=== PATIENT | male | born 1960 | race Two or more races ===

== ENCOUNTER 2022-01-14 10:13 | Inpatient (IN) | payer OTHER ==
[~2022-01-14] VITALS: Ht 152.4 cm; Wt 88.0 kg
--- NOTE | 2022-01-14 10:54 | NUR ---
SE RECIBE PTE ALERTA Y ORIENTADO X3 CUAL REFIERE QTUVO TRAUMA EN DEDO ANULAR MANO IZQ HACE UN MES. DESDO SE OBSERVA CON LEVE EDEMA Y CON NECROSIS. SE YOVANI S/V Y SE UBICA EN FT.
[2022-01-14] MEDS ORDERED: CIPRO250 MG PO (10:56)
[2022-01-14] MEDS ORDERED: GRALISE600 MG PO (10:57)
[2022-01-14] MEDS ORDERED: PAXIL30 MG PO (10:58)
[2022-01-14] MEDS ORDERED: MIRTAZAPINE30 M1 PO (10:59)
[2022-01-14] MEDS ORDERED: METAXALONE400 MG PO (11:00)
[2022-01-14] MEDS ORDERED: ATORVASTATIN CA10 MG PO (11:00)
[2022-01-14] MEDS ORDERED: TAMS0.4C PO (11:00)
[2022-01-14] MEDS ORDERED: PLAVIX75 MG (11:01)
[2022-01-14] MEDS ORDERED: HUMULIN N100 UNIT/2 (11:01)
[2022-01-14] MEDS ORDERED: LANTUS SOL100 UNIT/1 SQ (11:01)
--- NOTE | 2022-01-14 12:47 | NUR ---
PACIENTE EVALUADO POR DR THEODORE QUIEN [place] MED[facility], RN TUESTA LE ORIENTA SOBRE EL MISMO Y REFIERE ENTENDER. LE COLECTA MUESTRAS DE LABORATOIRO BAJO MEDIAS ASEPTICAS.
--- NOTE | 2022-01-14 16:27 | NUR ---
SE CANALIZA PTE BAJO MEDIDAS ASEPTICAS,SE ADMINISTRA MEDICAMENTO DENZEL ORDEN MEDICA.
== END 2022-01-22 22:48 | disposition home or self-care (01) | DRG 255 ==
LOC: ER 10:13 → MEDI 19:20 → MEDJ 19:20 → MEDI 01-15 16:30
PROVIDERS: Orthopaedic Surgery Hand Surgery; ADMIT Internal Medicine; ATTEND Internal Medicine
PROC: CW1N1ZZ Planar Nuclear Medicine Imaging of Whole Body using Technetium 99m (Tc-99m) (ICD-10-PCS; 2022-01-15)
PROC: 0X6T0Z2 Detachment at Left Ring Finger, Mid, Open Approach (ICD-10-PCS; principal; 2022-01-20 07:00)
DX: E11.52 Type 2 diabetes mellitus with diabetic peripheral angiopathy with gangrene (principal); N18.6 End stage renal disease; I96 Gangrene, not elsewhere classified; M86.142 Other acute osteomyelitis, left hand; L97.821 Non-pressure chronic ulcer of other part of left lower leg limited to breakdown of skin; I12.0 Hypertensive chronic kidney disease with stage 5 chronic kidney disease or end stage renal disease; E11.22 Type 2 diabetes mellitus with diabetic chronic kidney disease; E11.65 Type 2 diabetes mellitus with hyperglycemia; E11.622 Type 2 diabetes mellitus with other skin ulcer; Z99.2 Dependence on renal dialysis; Z79.4 Long term (current) use of insulin; Z79.84 Long term (current) use of oral hypoglycemic drugs

== ENCOUNTER 2022-02-01 12:21 | Inpatient (IN) | payer OTHER ==
[~2022-02-01] VITALS: Ht 167.6 cm; Wt 87.5 kg
[~2022-02-01 12:21] MED LIST: ATORVASTATIN CA10 MG PO; CIPRO250 MG PO; GRALISE600 MG PO; HUMULIN N100 UNIT/2; LANTUS SOL100 UNIT/1 SQ; METAXALONE400 MG PO; MIRTAZAPINE30 M1 PO; PAXIL30 MG PO; PLAVIX75 MG; TAMS0.4C PO
--- NOTE | 2022-02-01 12:50 | NUR ---
SE RECIBE PT EMASCULINO DE 61 ANOS ALERTA Y ORIENTADO X3 QUIEN REFIERE SENU SIDO OPERADO POR DR OLEGARIO ERWIN EN EL DEDO ANULAR DE MANO IZQ. PTE REFIERE DOLOR Y DECOLORACION EN EL AREA AFECTADA. AL MOENTO SE OBSERBA AREA CIRCUNDANTE OSCURA. SE MONITOREAN S/V Y SE UBICA EN MARK ANTHONY 7.
--- NOTE | 2022-02-01 14:43 | NUR ---
PACIENTE LLEGA A GINGER DE EMERGENCIA Y REFIERE DOLOR EN MANO IZQUIERDA. SE OBSERVA NECROSIS EN DEDO INDICE MAX Y ENROJECIMIENTO EN MALONE DE LA MANO IZQUIERDA. SE ADMINISTRA MEDICAMENTO Y SE ORIENTA SOBRE EL MISMO. SE YOVANI MUESTRAS DE NEO.
== END 2022-02-12 20:49 | disposition home or self-care (01) | DRG 299 ==
LOC: ER 12:21 → MEDJ 02-02 05:41
PROVIDERS: ADMIT Internal Medicine; ATTEND Internal Medicine
PROC: 5A1D70Z Performance of Urinary Filtration, Intermittent, Less than 6 Hours Per Day (ICD-10-PCS; principal; 2022-02-03)
PROC: 5A1D70Z Performance of Urinary Filtration, Intermittent, Less than 6 Hours Per Day (ICD-10-PCS; 2022-02-05)
PROC: 8E0ZXY6 Isolation (ICD-10-PCS; 2022-02-05)
PROC: 5A1D70Z Performance of Urinary Filtration, Intermittent, Less than 6 Hours Per Day (ICD-10-PCS; 2022-02-08)
PROC: 5A1D70Z Performance of Urinary Filtration, Intermittent, Less than 6 Hours Per Day (ICD-10-PCS; 2022-02-10)
PROC: 5A1D70Z Performance of Urinary Filtration, Intermittent, Less than 6 Hours Per Day (ICD-10-PCS; 2022-02-12)
DX: E11.52 Type 2 diabetes mellitus with diabetic peripheral angiopathy with gangrene (principal); N18.6 End stage renal disease; I12.0 Hypertensive chronic kidney disease with stage 5 chronic kidney disease or end stage renal disease; I96 Gangrene, not elsewhere classified; L97.828 Non-pressure chronic ulcer of other part of left lower leg with other specified severity; L03.012 Cellulitis of left finger; E11.622 Type 2 diabetes mellitus with other skin ulcer; E11.65 Type 2 diabetes mellitus with hyperglycemia; E11.22 Type 2 diabetes mellitus with diabetic chronic kidney disease; Z99.2 Dependence on renal dialysis; Z79.4 Long term (current) use of insulin; Z89.022 Acquired absence of left finger(s); Z89.511 Acquired absence of right leg below knee; D72.829 Elevated white blood cell count, unspecified

== ENCOUNTER 2022-02-17 22:06 | Inpatient (IN) | payer OTHER ==
[~2022-02-17] VITALS: Ht 152.4 cm; Wt 85.3 kg
[2022-02-17] MEDS ORDERED: LANTUS SOL100 UNIT/1 SQ (22:21)
--- NOTE | 2022-02-17 22:22 | NUR ---
PACIENTE ALERTA Y ORIENTADO X3 EN AMBULANCIA DE TRANSLADO [facility]. PACIENTE REFIERE QUE LA SEMANA PASADA ESTUVO ADMITIDO POR AMPUTACION EN DEDO DE LA MANO IZQUIERDA PACIENTE REFIERE QUE PRESENTA INFECCION EN AREA DE OPERACION.
--- NOTE | 2022-02-17 22:57 | NUR ---
PTE ALERTA Y ORIENTADO X3, SE RECIBE PTE CANALIZADO DE [facility] EN BRAZO DERECHO ANGIO #20 AREA IRMA DE EDEMA Y DE ENROJECIMIENTO. REFIERE QUE SE PUEDE UTILIZAR H/L. SE LE YOVANI MUESTRAS DE LAB. BAJO MEDIDAS ASEPTICAS E ESTERIL. SE LE ADMINISTRAN MEDICAMENTO DENZEL ORDEN MEDICA Y SE EDUCA A PTE SOBRE TRATAMIENTO MEDICO.
== END 2022-04-08 13:02 | disposition expired | DRG 3 ==
LOC: ER 22:06 → SURH 23:13 → SEC-K 23:13 → ICU 23:13 → SURG 02-18 19:11 → SEC-K 02-18 19:58 → SURH 02-19 12:45 → ICU 02-28 18:37
PROVIDERS: Surgery; ADMIT Internal Medicine; ATTEND Internal Medicine
PROC: 5A1D70Z Performance of Urinary Filtration, Intermittent, Less than 6 Hours Per Day (ICD-10-PCS; 2022-02-19)
PROC: 0X6T0Z0 Detachment at Left Ring Finger, Complete, Open Approach (ICD-10-PCS; 2022-02-20)
PROC: 30243N1 Transfusion of Nonautologous Red Blood Cells into Central Vein, Percutaneous Approach (ICD-10-PCS; 2022-02-22)
PROC: 5A1D70Z Performance of Urinary Filtration, Intermittent, Less than 6 Hours Per Day (ICD-10-PCS; 2022-02-22)
PROC: 5A1D70Z Performance of Urinary Filtration, Intermittent, Less than 6 Hours Per Day (ICD-10-PCS; 2022-02-24)
PROC: 5A1D70Z Performance of Urinary Filtration, Intermittent, Less than 6 Hours Per Day (ICD-10-PCS; 2022-02-26)
PROC: 4A12X45 Monitoring of Cardiac Electrical Activity, Ambulatory, External Approach (ICD-10-PCS; 2022-02-27)
PROC: 5A1955Z Respiratory Ventilation, Greater than 96 Consecutive Hours (ICD-10-PCS; 2022-02-28)
PROC: 0BH18EZ Insertion of Endotracheal Airway into Trachea, Via Natural or Artificial Opening Endoscopic (ICD-10-PCS; 2022-02-28)
PROC: 5A09357 Assistance with Respiratory Ventilation, Less than 24 Consecutive Hours, Continuous Positive Airway Pressure (ICD-10-PCS; 2022-02-28)
PROC: 5A09457 Assistance with Respiratory Ventilation, 24-96 Consecutive Hours, Continuous Positive Airway Pressure (ICD-10-PCS; 2022-02-28)
PROC: 5A0945A Assistance with Respiratory Ventilation, 24-96 Consecutive Hours, High Flow/Velocity Cannula (ICD-10-PCS; 2022-02-28)
PROC: 5A1D70Z Performance of Urinary Filtration, Intermittent, Less than 6 Hours Per Day (ICD-10-PCS; 2022-03-01)
PROC: 5A1D70Z Performance of Urinary Filtration, Intermittent, Less than 6 Hours Per Day (ICD-10-PCS; 2022-03-03)
PROC: B34JZZZ Ultrasonography of Left Upper Extremity Arteries (ICD-10-PCS; 2022-03-04)
PROC: B24BYZZ Ultrasonography of Heart with Aorta using Other Contrast (ICD-10-PCS; 2022-03-05)
PROC: 5A1D70Z Performance of Urinary Filtration, Intermittent, Less than 6 Hours Per Day (ICD-10-PCS; 2022-03-05)
PROC: 5A1D70Z Performance of Urinary Filtration, Intermittent, Less than 6 Hours Per Day (ICD-10-PCS; 2022-03-08)
PROC: 0JBK0ZZ Excision of Left Hand Subcutaneous Tissue and Fascia, Open Approach (ICD-10-PCS; 2022-03-09)
PROC: 5A1D70Z Performance of Urinary Filtration, Intermittent, Less than 6 Hours Per Day (ICD-10-PCS; 2022-03-10)
PROC: 5A1D70Z Performance of Urinary Filtration, Intermittent, Less than 6 Hours Per Day (ICD-10-PCS; 2022-03-12)
PROC: 5A1D70Z Performance of Urinary Filtration, Intermittent, Less than 6 Hours Per Day (ICD-10-PCS; 2022-03-15)
PROC: 5A1D70Z Performance of Urinary Filtration, Intermittent, Less than 6 Hours Per Day (ICD-10-PCS; 2022-03-17)
PROC: 5A1D70Z Performance of Urinary Filtration, Intermittent, Less than 6 Hours Per Day (ICD-10-PCS; 2022-03-19)
PROC: 0G8J0ZZ Division of Thyroid Gland Isthmus, Open Approach (ICD-10-PCS; 2022-03-20)
PROC: 0B110F4 Bypass Trachea to Cutaneous with Tracheostomy Device, Open Approach (ICD-10-PCS; principal; 2022-03-20 09:00)
PROC: 5A1D70Z Performance of Urinary Filtration, Intermittent, Less than 6 Hours Per Day (ICD-10-PCS; 2022-03-21)
PROC: 5A1D70Z Performance of Urinary Filtration, Intermittent, Less than 6 Hours Per Day (ICD-10-PCS; 2022-03-23)
PROC: 5A1D70Z Performance of Urinary Filtration, Intermittent, Less than 6 Hours Per Day (ICD-10-PCS; 2022-03-25)
PROC: 5A1D70Z Performance of Urinary Filtration, Intermittent, Less than 6 Hours Per Day (ICD-10-PCS; 2022-03-27)
PROC: 5A1D70Z Performance of Urinary Filtration, Intermittent, Less than 6 Hours Per Day (ICD-10-PCS; 2022-03-29)
PROC: 5A1D70Z Performance of Urinary Filtration, Intermittent, Less than 6 Hours Per Day (ICD-10-PCS; 2022-03-31)
PROC: 5A1D70Z Performance of Urinary Filtration, Intermittent, Less than 6 Hours Per Day (ICD-10-PCS; 2022-04-01)
PROC: 5A1D70Z Performance of Urinary Filtration, Intermittent, Less than 6 Hours Per Day (ICD-10-PCS; 2022-04-02)
PROC: 5A1D70Z Performance of Urinary Filtration, Intermittent, Less than 6 Hours Per Day (ICD-10-PCS; 2022-04-05)
PROC: 5A1D70Z Performance of Urinary Filtration, Intermittent, Less than 6 Hours Per Day (ICD-10-PCS; 2022-04-07)
DX: E11.52 Type 2 diabetes mellitus with diabetic peripheral angiopathy with gangrene (principal); N18.6 End stage renal disease; J96.00 Acute respiratory failure, unspecified whether with hypoxia or hypercapnia; A41.9 Sepsis, unspecified organism; R65.21 Severe sepsis with septic shock; J69.0 Pneumonitis due to inhalation of food and vomit; B37.1 Pulmonary candidiasis; G92.8 Other toxic encephalopathy; I96 Gangrene, not elsewhere classified; M86.142 Other acute osteomyelitis, left hand; L03.114 Cellulitis of left upper limb; Z16.24 Resistance to multiple antibiotics; I13.2 Hypertensive heart and chronic kidney disease with heart failure and with stage 5 chronic kidney disease, or end stage renal disease; I50.20 Unspecified systolic (congestive) heart failure; E87.2 Acidosis; N17.9 Acute kidney failure, unspecified; B96.1 Klebsiella pneumoniae [K. pneumoniae] as the cause of diseases classified elsewhere; B95.2 Enterococcus as the cause of diseases classified elsewhere; E11.22 Type 2 diabetes mellitus with diabetic chronic kidney disease; E11.65 Type 2 diabetes mellitus with hyperglycemia; E11.69 Type 2 diabetes mellitus with other specified complication; E11.42 Type 2 diabetes mellitus with diabetic polyneuropathy; E04.9 Nontoxic goiter, unspecified; I25.10 Atherosclerotic heart disease of native coronary artery without angina pectoris; E66.01 Morbid (severe) obesity due to excess calories; R46.0 Very low level of personal hygiene; D50.0 Iron deficiency anemia secondary to blood loss (chronic); D63.1 Anemia in chronic kidney disease; Z68.31 Body mass index [BMI] 31.0-31.9, adult; Z99.2 Dependence on renal dialysis; Z79.4 Long term (current) use of insulin; Z89.511 Acquired absence of right leg below knee; I48.0 Paroxysmal atrial fibrillation